=== PATIENT | male | born 1990 | race Caucasian/White ===

== ENCOUNTER 2017-06-13 00:41 | Inpatient (IN) | payer OTHER ==
[2017-06-13] MEDS: ONDANSETRON 4 MG INJ IV ×4 (01:20→14:27)
[2017-06-13] MEDS: morphine 4 MG/ML VIAL IV (01:21)
[2017-06-13] MEDS: NITROGLYCERIN 2% 1 GM OINT PKT TD (01:22)
[2017-06-13 01:50] LABS: ADD MAN DIFF? NO
[2017-06-13 01:53] LABS: ABNORMAL IP MESSAGE 1; BASOPHILS % 0.2 % (0.0-2.0); EOSINOPHILS # 0.1 10^3/ul (0.0-0.5); EOSINOPHILS % 0.8 % (0.0-7.0); HEMATOCRIT 22.4 % (42.0-52.0); LYMPHOCYTES # 1.2 10^3/ul (0.8-2.9); LYMPHOCYTES % 20.8 % (15.0-51.0); MEAN CORPUSCULAR HEMOGLOBIN 30.1 pg (29.0-33.0); MEAN CORPUSCULAR HGB CONC 35.7 g/dl (32.0-37.0); MEAN CORPUSCULAR VOLUME 84.2 fl (82.0-101.0); MONOCYTE # 0.3 10^3/ul (0.3-0.9); MONOCYTES % 5.2 % (0.0-11.0); NEUTROPHIL # 4.3 10^3/ul (1.6-7.5); NEUTROPHILS % 72.7 % (39.0-77.0); PLATELET COUNT 52 10^3/UL (140-415); POSITIVE DIFF @See below; RED BLOOD COUNT 2.66 10^6/ul (4.70-6.10); RED CELL DISTRIBUTION WIDTH 13.6 % (11.5-14.5)
[2017-06-13 02:13] LABS: ALANINE AMINOTRANSFERASE 17 IU/L (13-69); ALBUMIN 3.6 g/dl (3.3-4.9); ALBUMIN/GLOBULIN RATIO 1.44; ALKALINE PHOSPHATASE 71 IU/L (42-121); ANION GAP 17 (8-16); ASPARTATE AMINO TRANSFERASE 17 IU/L (15-46); BILIRUBIN,INDIRECT 0.3 mg/dl (0-1.1); BILIRUBIN,TOTAL 0.3 mg/dl (0.2-1.3); BLOOD UREA NITROGEN 46 mg/dl (7-20); CALCIUM 9.6 mg/dl (8.4-10.2); CARBON DIOXIDE 34 mmol/L (21-31); CHLORIDE 92 mmol/L (97-110); CREATININE 12.45 mg/dl (0.61-1.24); GLUCOSE 106 mg/dl (70-220); POTASSIUM 4.4 mmol/L (3.5-5.1); SODIUM 139 mmol/L (135-144); TOTAL PROTEIN 6.1 g/dl (6.1-8.1)
[2017-06-13 02:24] LABS: TROPONIN-I 0.029 ng/ml (0.00-0.12)
[2017-06-13 02:39] LABS: B-TYPE NATRIURETIC PEPTIDE 106000 PG/ML (0-125)
[2017-06-13] MEDS: hydrALAzine 20 MG INJ IV ×4 (02:55→17:51)
[2017-06-13] MEDS ORDERED: NITROGLYCERIN (SL) 0.4 MG TAB SL (04:30)
[2017-06-13] MEDS ORDERED: NACL 0.9% 3 ML SYG IV (04:30)
[2017-06-13] MEDS: ACETAMINOPHEN 325 MG TAB PO ×2 (04:49→11:16)
[2017-06-13 05:21] LABS: IRON 62 ug/dl (35-150)
[2017-06-13 05:30] LABS: % IRON SATURATION 31 % SAT (22-52); TOTAL IRON BINDING CAPACITY 201 ug/dl (241-421)
[2017-06-13 06:26] LABS: CREATINE KINASE 71 IU/L (23-200)
[2017-06-13 06:36] LABS: CK INDEX 0.8; TROPONIN-I 0.027 ng/ml (0.00-0.12)
[2017-06-13] MEDS: morphine 2 MG INJ IV ×2 (06:36→11:16)
[2017-06-13 06:37] LABS: CK-MB 0.58 ng/ml (0.0-2.4)
[2017-06-13] MEDS: BENAZEPRIL 20 MG TAB PO ×2 (08:50→09:00)
[2017-06-13] MEDS: LABETALOL 200 MG TAB PO ×2 (09:35→23:09)
[2017-06-13 14:39] LABS: CREATINE KINASE 62 IU/L (23-200)
[2017-06-13 14:54] LABS: CK INDEX 1.1; TROPONIN-I 0.052 ng/ml (0.00-0.12)
[2017-06-13] MEDS: EPOETIN 10000 UNITS/1 ML INJ (ESRD) SC (23:08)
[2017-06-14] MEDS: LABETALOL 200 MG TAB PO ×2 (08:33→20:19)
[2017-06-14] MEDS: BENAZEPRIL 20 MG TAB PO (08:34)
[2017-06-14 09:33] LABS: ADD MAN DIFF? NO
[2017-06-14 09:42] LABS: WHITE BLOOD COUNT 6.3 10^3/ul (4.8-10.8)
[2017-06-14 09:42] LABS: ABNORMAL IP MESSAGE 1; BASOPHILS % 0.2 % (0.0-2.0); EOSINOPHILS # 0.1 10^3/ul (0.0-0.5); HEMATOCRIT 23.5 % (42.0-52.0); LYMPHOCYTES # 1.5 10^3/ul (0.8-2.9); LYMPHOCYTES % 24.4 % (15.0-51.0); MEAN CORPUSCULAR HEMOGLOBIN 29.7 pg (29.0-33.0); MEAN CORPUSCULAR VOLUME 87.4 fl (82.0-101.0); MEAN PLATELET VOLUME 11.3 fl (7.4-10.4); MONOCYTE # 0.5 10^3/ul (0.3-0.9); MONOCYTES % 7.3 % (0.0-11.0); NEUTROPHIL # 4.2 10^3/ul (1.6-7.5); NEUTROPHILS % 66.8 % (39.0-77.0); PLATELET COUNT 92 10^3/UL (140-415); POSITIVE DIFF @See below; RED BLOOD COUNT 2.69 10^6/ul (4.70-6.10)
[2017-06-14 10:04] LABS: HEMOGLOBIN A1C 5.2 % (0-5.9)
[2017-06-14 10:07] LABS: ALANINE AMINOTRANSFERASE 22 IU/L (13-69); ALBUMIN 3.5 g/dl (3.3-4.9); ALBUMIN/GLOBULIN RATIO 1.52; ALKALINE PHOSPHATASE 65 IU/L (42-121); ANION GAP 15 (8-16); ASPARTATE AMINO TRANSFERASE 15 IU/L (15-46); BILIRUBIN,INDIRECT 0.2 mg/dl (0-1.1); BILIRUBIN,TOTAL 0.2 mg/dl (0.2-1.3); BLOOD UREA NITROGEN 24 mg/dl (7-20); CALCIUM 9.8 mg/dl (8.4-10.2); CARBON DIOXIDE 31 mmol/L (21-31); CHLORIDE 99 mmol/L (97-110); CHOL/HDL RATIO 4.5 RATIO; CHOLESTEROL 137 mg/dl (100-200); CREATININE 8.67 mg/dl (0.61-1.24); GLUCOSE 87 mg/dl (70-220); HDL CHOLESTEROL 30 mg/dl (30-63); LDL CHOLESTEROL,CALCULATED 82 mg/dl; POTASSIUM 5.2 mmol/L (3.5-5.1); SODIUM 140 mmol/L (135-144); TOTAL PROTEIN 5.8 g/dl (6.1-8.1); TRIGLYCERIDES 125 mg/dl (0-149)
[2017-06-14 23:45] LABS: HEPATITIS B SURFACE ANTIGEN NEGATIVE (NEGATIVE)
[2017-06-15] MEDS: hydrALAzine 20 MG INJ IV ×2 (01:17→23:59)
[2017-06-15] MEDS: DIPHENHYDRAMINE 50 MG INJ IV ×2 (03:04→23:59)
[2017-06-15] MEDS: BENAZEPRIL 20 MG TAB PO (08:19)
[2017-06-15] MEDS: LABETALOL 200 MG TAB PO ×2 (08:20→21:23)
[2017-06-15] MEDS: AMLODIPINE 5 MG TAB PO (08:21)
[2017-06-15 08:49] LABS: HEMOGLOBIN 8.6 g/dl (14.0-18.0)
[2017-06-15] MEDS: EPOETIN 10000 UNITS/1 ML INJ (ESRD) SC (18:59)
[2017-06-15] MEDS: ACETAMINOPHEN 325 MG TAB PO (23:59)
[2017-06-16] MEDS: BENAZEPRIL 20 MG TAB PO (08:41)
[2017-06-16] MEDS: AMLODIPINE 5 MG TAB PO (08:41)
[2017-06-16] MEDS: LABETALOL 200 MG TAB PO (08:42)
[2017-06-16] MEDS: hydrALAzine 20 MG INJ IV ×2 (11:12→17:03)
== END 2017-06-16 17:34 | disposition home or self-care (01) | DRG 304 ==
LOC: MS4 05:35 → E/R 00:41 → TEL 06-14 22:47 → MS4 03:35
PROC: 5A1D70Z Performance of Urinary Filtration, Intermittent, Less than 6 Hours Per Day (ICD-10-PCS; principal; 2017-06-15)
DX: I16.0 Hypertensive urgency (principal); I12.0 Hypertensive chronic kidney disease with stage 5 chronic kidney disease or end stage renal disease; N18.6 End stage renal disease; I67.83 Posterior reversible encephalopathy syndrome; Q60.0 Renal agenesis, unilateral; G47.33 Obstructive sleep apnea (adult) (pediatric); D63.1 Anemia in chronic kidney disease; K21.9 Gastro-esophageal reflux disease without esophagitis; E83.9 Disorder of mineral metabolism, unspecified; Z99.2 Dependence on renal dialysis
CPT/HCPCS: 36415; 71045; 76775; 80053; 80061; 82550; 82553; 82728; 83036; 83540; 83735; 83880; 84443; 84484; 85014; 85018; 85025; 87340; 90935; 93005; 93306; 96374; 96375; 96376; 99291-25

== ENCOUNTER 2017-06-17 19:23 | Inpatient (IN) | payer OTHER ==
[2017-06-17] MEDS ORDERED: NITROGLYCERIN (SL) 0.4 MG TAB SL (20:00)
[2017-06-17] MEDS: ASPIRIN 81 MG TAB PO (20:10)
[2017-06-17] MEDS: NITROGLYCERIN 2% 1 GM OINT PKT TD (20:12)
[2017-06-17] MEDS: ONDANSETRON 4 MG INJ IV (20:13)
[2017-06-17] MEDS: morphine 4 MG/ML VIAL IV (20:14)
[2017-06-17 20:16] LABS: ADD MAN DIFF? NO
[2017-06-17 20:37] LABS: ANION GAP 19 (8-16); BASOPHILS % 0.4 % (0.0-2.0); BLOOD UREA NITROGEN 26 mg/dl (7-20); CALCIUM 9.1 mg/dl (8.4-10.2); CARBON DIOXIDE 32 mmol/L (21-31); CHLORIDE 89 mmol/L (97-110); CREATININE 6.22 mg/dl (0.61-1.24); EOSINOPHILS % 0.4 % (0.0-7.0); GLUCOSE 97 mg/dl (70-220); HEMATOCRIT 22.5 % (42.0-52.0); HEMOGLOBIN 8.1 g/dl (14.0-18.0); LYMPHOCYTES % 39.3 % (15.0-51.0); MEAN CORPUSCULAR VOLUME 83.3 fl (82.0-101.0); MEAN PLATELET VOLUME 11.1 fl (7.4-10.4); MONOCYTE # 0.4 10^3/ul (0.3-0.9); MONOCYTES % 7.9 % (0.0-11.0); NEUTROPHIL # 2.6 10^3/ul (1.6-7.5); NEUTROPHILS % 51.8 % (39.0-77.0); PLATELET COUNT 137 10^3/UL (140-415); POTASSIUM 3.4 mmol/L (3.5-5.1); RED CELL DISTRIBUTION WIDTH 14.3 % (11.5-14.5); SODIUM 137 mmol/L (135-144)
[2017-06-17 20:50] LABS: TROPONIN-I < 0.012 ng/ml (0.00-0.12)
[2017-06-17] MEDS ORDERED: ACETAMINOPHEN 325 MG TAB PO (21:30)
[2017-06-17] MEDS ORDERED: ONDANSETRON 4 MG INJ IV (21:30)
[2017-06-17] MEDS ORDERED: BISACODYL (EC) 5 MG TAB PO (23:30)
[2017-06-17] MEDS ORDERED: NACL 0.9% 3 ML SYG IV (23:30)
[2017-06-17] MEDS ORDERED: DOCUSATE SODIUM 100 MG CAP PO (23:30)
[2017-06-18] MEDS: LABETALOL HCL 20MG INJ IV (01:56)
[2017-06-18 02:32] LABS: ADD MAN DIFF? NO
[2017-06-18 02:36] LABS: WHITE BLOOD COUNT 5.6 10^3/ul (4.8-10.8)
[2017-06-18 02:36] LABS: BASOPHILS % 0.4 % (0.0-2.0); EOSINOPHILS % 0.2 % (0.0-7.0); HEMATOCRIT 23.5 % (42.0-52.0); HEMOGLOBIN 8.1 g/dl (14.0-18.0); LYMPHOCYTES # 1.5 10^3/ul (0.8-2.9); LYMPHOCYTES % 26.2 % (15.0-51.0); MEAN CORPUSCULAR HEMOGLOBIN 29.8 pg (29.0-33.0); MEAN CORPUSCULAR HGB CONC 34.5 g/dl (32.0-37.0); MEAN CORPUSCULAR VOLUME 86.4 fl (82.0-101.0); MEAN PLATELET VOLUME 10.9 fl (7.4-10.4); MONOCYTE # 0.3 10^3/ul (0.3-0.9); MONOCYTES % 4.8 % (0.0-11.0); NEUTROPHIL # 3.8 10^3/ul (1.6-7.5); PLATELET COUNT 119 10^3/UL (140-415); RED BLOOD COUNT 2.72 10^6/ul (4.70-6.10); RED CELL DISTRIBUTION WIDTH 14.2 % (11.5-14.5)
[2017-06-18 03:10] LABS: CREATINE KINASE 61 IU/L (23-200)
[2017-06-18 03:11] LABS: ALANINE AMINOTRANSFERASE 15 IU/L (13-69); ALBUMIN 3.8 g/dl (3.3-4.9); ALKALINE PHOSPHATASE 71 IU/L (42-121); ANION GAP 17 (8-16); ASPARTATE AMINO TRANSFERASE 15 IU/L (15-46); BILIRUBIN,INDIRECT 0.2 mg/dl (0-1.1); BILIRUBIN,TOTAL 0.2 mg/dl (0.2-1.3); BLOOD UREA NITROGEN 32 mg/dl (7-20); CARBON DIOXIDE 37 mmol/L (21-31); CHLORIDE 87 mmol/L (97-110); CREATININE 7.56 mg/dl (0.61-1.24); GLUCOSE 137 mg/dl (70-220); SODIUM 137 mmol/L (135-144); TOTAL PROTEIN 6.5 g/dl (6.1-8.1)
[2017-06-18 03:20] LABS: CK INDEX 0.4; TROPONIN-I 0.109 ng/ml (0.00-0.12)
[2017-06-18 03:24] LABS: CK-MB 0.27 ng/ml (0.0-2.4)
[2017-06-18] MEDS ORDERED: DIAZEPAM 5 MG/ML SYG IV (05:30)
[2017-06-18] MEDS: DIAZEPAM 5 MG/ML SYG IV (06:37)
[2017-06-18 08:21] LABS: CREATINE KINASE 59 IU/L (23-200)
[2017-06-18 08:34] LABS: CK INDEX 0.4
[2017-06-18 08:38] LABS: CK-MB < 0.22 ng/ml (0.0-2.4)
[2017-06-18 08:41] LABS: TROPONIN-I 0.156 ng/ml (0.00-0.12)
[2017-06-18] MEDS: ASPIRIN 81 MG TAB PO (09:58)
[2017-06-18 12:04] LABS: TROPONIN-I 0.128 ng/ml (0.00-0.12)
[2017-06-18] MEDS: ISOSORBIDE DINITRATE 20 MG TAB PO ×2 (16:13→21:09)
[2017-06-18 18:18] LABS: CREATINE KINASE 61 IU/L (23-200)
[2017-06-18 18:32] LABS: CK INDEX 0.4; TROPONIN-I 0.085 ng/ml (0.00-0.12)
[2017-06-18 18:37] LABS: CK-MB < 0.22 ng/ml (0.0-2.4)
[2017-06-18] MEDS: ACETAMINOPHEN 325 MG TAB PO (21:09)
[2017-06-18] MEDS: ONDANSETRON 4 MG INJ IV (21:10)
[2017-06-18] MEDS: DIPHENHYDRAMINE 25 MG CAP PO (23:36)
[2017-06-19] MEDS: hydrALAzine 20 MG INJ IV ×4 (00:44→11:38)
[2017-06-19 01:14] LABS: CREATINE KINASE 64 IU/L (23-200)
[2017-06-19 01:26] LABS: CK INDEX 0.3
[2017-06-19 01:28] LABS: CK-MB < 0.22 ng/ml (0.0-2.4)
[2017-06-19] MEDS: ONDANSETRON 4 MG INJ IV (07:40)
[2017-06-19] MEDS: morphine 2 MG INJ IV ×2 (07:41→23:43)
[2017-06-19 07:55] LABS: CHOLESTEROL 126 mg/dl (100-200)
[2017-06-19 07:55] LABS: CHOL/HDL RATIO 4.5 RATIO; HDL CHOLESTEROL 28 mg/dl (30-63); LDL CHOLESTEROL,CALCULATED 74 mg/dl; TRIGLYCERIDES 121 mg/dl (0-149)
[2017-06-19] MEDS: ISOSORBIDE DINITRATE 20 MG TAB PO ×2 (09:05→12:48)
[2017-06-19] MEDS: ASPIRIN 81 MG TAB PO (09:05)
[2017-06-19] MEDS: LABETALOL 200 MG TAB PO ×2 (09:06→20:49)
[2017-06-19] MEDS: SEVELAMER CARBONATE 0.8 GM PKT PO ×3 (09:06→17:29)
[2017-06-19] MEDS: LOSARTAN 50 MG TAB PO ×2 (09:06→20:50)
[2017-06-19] MEDS: REGADENOSON 0.4 MG/5 ML SYG (11:25)
[2017-06-20] MEDS: NITROGLYCERIN (SL) 0.4 MG TAB SL (01:53)
[2017-06-20] MEDS: LABETALOL HCL 20MG INJ IV (01:55)
[2017-06-20] MEDS: AMLODIPINE 5 MG TAB PO (05:38)
[2017-06-20] MEDS: LABETALOL 200 MG TAB PO ×2 (08:04→21:00)
[2017-06-20] MEDS: SEVELAMER CARBONATE 0.8 GM PKT PO ×3 (08:04→18:05)
[2017-06-20] MEDS: ASPIRIN 81 MG TAB PO (08:04)
[2017-06-20] MEDS: LOSARTAN 50 MG TAB PO (08:05)
[2017-06-20 09:11] LABS: ADD MAN DIFF? NO
[2017-06-20 09:21] LABS: WHITE BLOOD COUNT 4.2 10^3/ul (4.8-10.8)
[2017-06-20 09:21] LABS: BASOPHILS % 0.2 % (0.0-2.0); EOSINOPHILS # 0.1 10^3/ul (0.0-0.5); EOSINOPHILS % 1.9 % (0.0-7.0); HEMATOCRIT 22.4 % (42.0-52.0); HEMOGLOBIN 7.5 g/dl (14.0-18.0); LYMPHOCYTES # 1.5 10^3/ul (0.8-2.9); LYMPHOCYTES % 34.5 % (15.0-51.0); MEAN CORPUSCULAR HEMOGLOBIN 29.9 pg (29.0-33.0); MEAN CORPUSCULAR HGB CONC 33.5 g/dl (32.0-37.0); MEAN CORPUSCULAR VOLUME 89.2 fl (82.0-101.0); MONOCYTE # 0.3 10^3/ul (0.3-0.9); MONOCYTES % 7.1 % (0.0-11.0); NEUTROPHIL # 2.3 10^3/ul (1.6-7.5); NEUTROPHILS % 55.8 % (39.0-77.0); PLATELET COUNT 119 10^3/UL (140-415); RED BLOOD COUNT 2.51 10^6/ul (4.70-6.10)
[2017-06-20 09:47] LABS: ANION GAP 13 (8-16); BLOOD UREA NITROGEN 39 mg/dl (7-20); CALCIUM 9.2 mg/dl (8.4-10.2); CARBON DIOXIDE 38 mmol/L (21-31); CHLORIDE 92 mmol/L (97-110); CREATININE 10.84 mg/dl (0.61-1.24); GLUCOSE 98 mg/dl (70-220); MAGNESIUM 2.1 mg/dl (1.7-2.5); PHOSPHORUS 5.1 mg/dl (2.5-4.9); POTASSIUM 5.1 mmol/L (3.5-5.1); SODIUM 138 mmol/L (135-144)
[2017-06-20] MEDS: NIFEdipine (XL) 60 MG TAB PO ×2 (09:49→20:57)
[2017-06-20] MEDS: BENAZEPRIL 40 MG TAB PO ×2 (09:50→20:57)
[2017-06-20] MEDS: hydrALAzine 20 MG INJ IV (12:07)
[2017-06-20] MEDS: LORAZEPAM 0.5 MG TAB PO (15:17)
[2017-06-20 16:07] LABS: IRON 38 ug/dl (35-150)
[2017-06-20 16:16] LABS: % IRON SATURATION 36 % SAT (22-52); TOTAL IRON BINDING CAPACITY 107 ug/dl (241-421)
[2017-06-20] MEDS ORDERED: LORAZEPAM 0.5 MG TAB PO (17:00)
[2017-06-20] MEDS: SEVELAMER 800 MG TAB PO (18:30)
[2017-06-20] MEDS: BUSPIRONE 5 MG TAB PO (20:56)
[2017-06-20] MEDS: EPOETIN 10000 UNITS/1 ML INJ (ESRD) SC (20:56)
[2017-06-21] MEDS: DIPHENHYDRAMINE 25 MG CAP PO (00:46)
[2017-06-21 09:25] LABS: ADD MAN DIFF? NO
[2017-06-21 09:36] LABS: BASOPHILS % 0.5 % (0.0-2.0); EOSINOPHILS # 0.1 10^3/ul (0.0-0.5); EOSINOPHILS % 1.5 % (0.0-7.0); HEMATOCRIT 24.7 % (42.0-52.0); HEMOGLOBIN 8.3 g/dl (14.0-18.0); LYMPHOCYTES # 1.1 10^3/ul (0.8-2.9); LYMPHOCYTES % 27.3 % (15.0-51.0); MEAN CORPUSCULAR HGB CONC 33.6 g/dl (32.0-37.0); MEAN CORPUSCULAR VOLUME 89.2 fl (82.0-101.0); MEAN PLATELET VOLUME 10.6 fl (7.4-10.4); MONOCYTE # 0.3 10^3/ul (0.3-0.9); MONOCYTES % 6.9 % (0.0-11.0); NEUTROPHIL # 2.6 10^3/ul (1.6-7.5); NEUTROPHILS % 63.3 % (39.0-77.0); PLATELET COUNT 145 10^3/UL (140-415); RED BLOOD COUNT 2.77 10^6/ul (4.70-6.10); RED CELL DISTRIBUTION WIDTH 14.6 % (11.5-14.5)
[2017-06-21] MEDS: BUSPIRONE 5 MG TAB PO ×2 (09:49→20:07)
[2017-06-21] MEDS: ASPIRIN 81 MG TAB PO (09:49)
[2017-06-21] MEDS: SEVELAMER 800 MG TAB PO ×3 (09:49→18:49)
[2017-06-21] MEDS: NIFEdipine (XL) 60 MG TAB PO ×2 (09:51→20:07)
[2017-06-21] MEDS: BENAZEPRIL 40 MG TAB PO ×2 (09:51→20:06)
[2017-06-21] MEDS: LABETALOL 200 MG TAB PO ×2 (09:52→20:06)
[2017-06-21 11:52] LABS: ANION GAP 17 (8-16); BLOOD UREA NITROGEN 31 mg/dl (7-20); CALCIUM 9.3 mg/dl (8.4-10.2); CARBON DIOXIDE 32 mmol/L (21-31); CHLORIDE 95 mmol/L (97-110); CREATININE 8.71 mg/dl (0.61-1.24); GLUCOSE 90 mg/dl (70-220); POTASSIUM 5.2 mmol/L (3.5-5.1); SODIUM 139 mmol/L (135-144)
[2017-06-21] MEDS: EPOETIN 10000 UNITS/1 ML INJ (ESRD) SC (18:50)
[2017-06-22] MEDS: SEVELAMER 800 MG TAB PO (08:27)
[2017-06-22] MEDS: ASPIRIN 81 MG TAB PO (08:52)
[2017-06-22] MEDS: BUSPIRONE 5 MG TAB PO (08:52)
[2017-06-22] MEDS: BENAZEPRIL 40 MG TAB PO (08:53)
[2017-06-22] MEDS: LABETALOL 200 MG TAB PO (08:53)
[2017-06-22] MEDS: NIFEdipine (XL) 60 MG TAB PO (08:53)
== END 2017-06-22 10:10 | disposition left against medical advice (07) | DRG 313 ==
LOC: E/R 19:23 → MS4 21:14
PROC: 5A1D70Z Performance of Urinary Filtration, Intermittent, Less than 6 Hours Per Day (ICD-10-PCS; principal; 2017-06-20)
DX: R07.89 Other chest pain (principal); N18.6 End stage renal disease; Q60.0 Renal agenesis, unilateral; F33.9 Major depressive disorder, recurrent, unspecified; I12.0 Hypertensive chronic kidney disease with stage 5 chronic kidney disease or end stage renal disease; F41.9 Anxiety disorder, unspecified; Z99.2 Dependence on renal dialysis; K21.9 Gastro-esophageal reflux disease without esophagitis; D63.1 Anemia in chronic kidney disease; I16.0 Hypertensive urgency; F41.0 Panic disorder [episodic paroxysmal anxiety]
CPT/HCPCS: 36415; 71045; 78452; 80048; 80053; 80061; 82550; 82553; 82728; 83540; 83735; 84100; 84484; 85025; 90935; 93005; 93017; 96374; 96375; 99285-25; G0378

== ENCOUNTER 2017-07-24 15:40 | Emergency (ER) | payer MEDICAID ==
[2017-07-24 16:17] LABS: ADD MAN DIFF? NO
[2017-07-24 16:20] LABS: BASOPHILS % 0.3 % (0.0-2.0); EOSINOPHILS % 0.5 % (0.0-7.0); HEMATOCRIT 27.4 % (42.0-52.0); HEMOGLOBIN 9.9 g/dl (14.0-18.0); LYMPHOCYTES # 1.2 10^3/ul (0.8-2.9); LYMPHOCYTES % 19.3 % (15.0-51.0); MEAN CORPUSCULAR HEMOGLOBIN 30.4 pg (29.0-33.0); MEAN CORPUSCULAR HGB CONC 36.1 g/dl (32.0-37.0); MEAN PLATELET VOLUME 9.8 fl (7.4-10.4); MONOCYTE # 0.3 10^3/ul (0.3-0.9); MONOCYTES % 4.8 % (0.0-11.0); NEUTROPHIL # 4.5 10^3/ul (1.6-7.5); NEUTROPHILS % 74.8 % (39.0-77.0); PLATELET COUNT 189 10^3/UL (140-415); RED BLOOD COUNT 3.26 10^6/ul (4.70-6.10)
[2017-07-24] MEDS: ASPIRIN 81 MG TAB PO (16:25)
[2017-07-24] MEDS: morphine 4 MG/ML VIAL IV (16:25)
[2017-07-24] MEDS: ONDANSETRON 4 MG INJ IV (16:25)
[2017-07-24 16:44] LABS: ALANINE AMINOTRANSFERASE 15 IU/L (13-69); ALBUMIN 4.8 g/dl (3.3-4.9); ALBUMIN/GLOBULIN RATIO 1.45; ALKALINE PHOSPHATASE 108 IU/L (42-121); ANION GAP 22 (8-16); ASPARTATE AMINO TRANSFERASE 18 IU/L (15-46); BILIRUBIN,INDIRECT 0.3 mg/dl (0-1.1); BILIRUBIN,TOTAL 0.3 mg/dl (0.2-1.3); BLOOD UREA NITROGEN 25 mg/dl (7-20); CALCIUM 9.9 mg/dl (8.4-10.2); CARBON DIOXIDE 34 mmol/L (21-31); CHLORIDE 88 mmol/L (97-110); CREATINE KINASE 48 IU/L (23-200); CREATININE 7.57 mg/dl (0.61-1.24); GLUCOSE 130 mg/dl (70-220); POTASSIUM 3.6 mmol/L (3.5-5.1); SODIUM 140 mmol/L (135-144); TOTAL PROTEIN 8.1 g/dl (6.1-8.1)
[2017-07-24 16:47] LABS: ETHANOL < 10.0 mg/dl
[2017-07-24 16:50] LABS: INR 0.96; PROTIME 12.9 Sec (11.9-14.9)
[2017-07-24 16:51] LABS: PARTIAL THROMBOPLASTIN TIME 30.9 Sec (25.0-35.0)
[2017-07-24 16:54] LABS: B-TYPE NATRIURETIC PEPTIDE 32800 PG/ML (0-125); CK INDEX 0.5
[2017-07-24 16:57] LABS: CK-MB < 0.22 ng/ml (0.0-2.4); TROPONIN-I < 0.012 ng/ml (0.000-0.120)
[2017-07-24 17:37] LABS: HEMOGLOBIN A1C 4.4 % (0-5.9)
[2017-07-24] MEDS: NICARDipine HCL 30 MG CAPSULE PO (18:45)
[2017-07-24 19:38] LABS: TROPONIN-I < 0.012 ng/ml (0.000-0.120)
== END 2017-07-24 20:09 ==
LOC: E/R 15:40
DX: I12.0 Hypertensive chronic kidney disease with stage 5 chronic kidney disease or end stage renal disease (principal); N18.6 End stage renal disease; Z99.2 Dependence on renal dialysis
CPT/HCPCS: 71045; 80053; 80307; 82550; 82553; 83036; 83880; 84484; 85025; 85610; 85730; 93005; 96374; 96375; 99285-25

== ENCOUNTER 2017-07-31 21:40 | Emergency (ER) | payer MEDICAID ==
[2017-08-01] MEDS: ONDANSETRON 4 MG INJ IV (00:12)
[2017-08-01] MEDS: morphine 4 MG/ML VIAL IV ×2 (00:12→04:23)
[2017-08-01 00:50] LABS: ADD MAN DIFF? NO
[2017-08-01 00:53] LABS: WHITE BLOOD COUNT 7.8 10^3/ul (4.8-10.8)
[2017-08-01 00:53] LABS: BASOPHILS % 0.4 % (0.0-2.0); EOSINOPHILS % 0.3 % (0.0-7.0); HEMOGLOBIN 10.9 g/dl (14.0-18.0); LYMPHOCYTES # 2.1 10^3/ul (0.8-2.9); LYMPHOCYTES % 26.3 % (15.0-51.0); MEAN CORPUSCULAR HGB CONC 35.2 g/dl (32.0-37.0); MEAN CORPUSCULAR VOLUME 88.1 fl (82.0-101.0); MEAN PLATELET VOLUME 10.8 fl (7.4-10.4); MONOCYTE # 0.5 10^3/ul (0.3-0.9); MONOCYTES % 6.1 % (0.0-11.0); NEUTROPHIL # 5.2 10^3/ul (1.6-7.5); NEUTROPHILS % 66.5 % (39.0-77.0); PLATELET COUNT 200 10^3/UL (140-415); RED BLOOD COUNT 3.52 10^6/ul (4.70-6.10); RED CELL DISTRIBUTION WIDTH 15.9 % (11.5-14.5)
[2017-08-01 01:04] LABS: ADD UMIC YES; UR ASCORBIC ACID NEGATIVE (NEGATIVE); UR BACTERIA FEW /HPF (NONE SEEN); UR BILIRUBIN (Dip) NEGATIVE (NEGATIVE); UR BLOOD (Dip) 1+ mg/dL (NEGATIVE); UR BUDDING YEAST FEW /HPF (NONE SEEN); UR CLARITY TURBID (CLEAR); UR COLOR YELLOW (YELLOW); UR GLUCOSE (Dip) 3+ mg/dL (NEGATIVE); UR KETONES (Dip) NEGATIVE (NEGATIVE); UR LEUKOCYTE ESTERASE (Dip) NEGATIVE Leu/ul (NEGATIVE); UR MUCUS FEW /HPF (NONE SEEN); UR NITRITE (Dip) NEGATIVE (NEGATIVE); UR RBC > 182 /HPF (0-5); UR SPECIFIC GRAVITY (Dip) 1.018 (1.003-1.030); UR TOTAL PROTEIN (Dip) 3+ mg/dl (NEGATIVE); UR UROBILINOGEN (Dip) NEGATIVE (NEGATIVE); UR WBC 43 /HPF (0-5)
[2017-08-01 01:15] LABS: ALANINE AMINOTRANSFERASE 14 IU/L (13-69); ALBUMIN 4.7 g/dl (3.3-4.9); ALBUMIN/GLOBULIN RATIO 1.46; ALKALINE PHOSPHATASE 137 IU/L (42-121); ANION GAP 19 (8-16); ASPARTATE AMINO TRANSFERASE 17 IU/L (15-46); BILIRUBIN,INDIRECT 0.1 mg/dl (0-1.1); BILIRUBIN,TOTAL 0.1 mg/dl (0.2-1.3); BLOOD UREA NITROGEN 27 mg/dl (7-20); CALCIUM 10.2 mg/dl (8.4-10.2); CARBON DIOXIDE 37 mmol/L (21-31); CHLORIDE 90 mmol/L (97-110); GLUCOSE 91 mg/dl (70-220); LIPASE 195 U/L (23-300); POTASSIUM 3.7 mmol/L (3.5-5.1); SODIUM 142 mmol/L (135-144); TOTAL PROTEIN 7.9 g/dl (6.1-8.1)
[2017-08-01 01:24] LABS: INR 0.89; PROTIME 12.1 Sec (11.9-14.9); PT RATIO 0.9
[2017-08-01 01:25] LABS: PARTIAL THROMBOPLASTIN TIME 32.6 Sec (25.0-35.0)
== END 2017-08-01 05:12 | disposition home or self-care (01) ==
LOC: FTE 08-01 05:12
DX: R10.31 Right lower quadrant pain (principal); I10 Essential (primary) hypertension
CPT/HCPCS: 36415; 74181; 80053; 81001; 83690; 85025; 85610; 85730; 96374; 96375; 96376; 99284-25

== ENCOUNTER 2017-08-14 14:21 | Inpatient (IN) | payer MEDICAID ==
[2017-08-14] MEDS: ASPIRIN 81 MG TAB PO (14:54)
[2017-08-14 14:56] LABS: ADD MAN DIFF? NO
[2017-08-14] MEDS: NITROGLYCERIN 50 MG/D5W (PMX) 250 ML IV ×2 (14:56→22:27)
[2017-08-14 14:58] LABS: BASOPHILS % 0.5 % (0.0-2.0); EOSINOPHILS # 0.1 10^3/ul (0.0-0.5); EOSINOPHILS % 1.6 % (0.0-7.0); HEMATOCRIT 25.4 % (42.0-52.0); HEMOGLOBIN 8.9 g/dl (14.0-18.0); LYMPHOCYTES # 1.1 10^3/ul (0.8-2.9); LYMPHOCYTES % 27.8 % (15.0-51.0); MEAN CORPUSCULAR HEMOGLOBIN 30.1 pg (29.0-33.0); MEAN CORPUSCULAR VOLUME 85.8 fl (82.0-101.0); MONOCYTE # 0.3 10^3/ul (0.3-0.9); MONOCYTES % 7.4 % (0.0-11.0); NEUTROPHIL # 2.4 10^3/ul (1.6-7.5); NEUTROPHILS % 62.4 % (39.0-77.0); PLATELET COUNT 145 10^3/UL (140-415); RED BLOOD COUNT 2.96 10^6/ul (4.70-6.10); RED CELL DISTRIBUTION WIDTH 13.8 % (11.5-14.5)
[2017-08-14 14:58] LABS: WHITE BLOOD COUNT 3.8 10^3/ul (4.8-10.8)
[2017-08-14 15:17] LABS: ANION GAP 14 (8-16); BLOOD UREA NITROGEN 34 mg/dl (7-20); CALCIUM 9.3 mg/dl (8.4-10.2); CARBON DIOXIDE 33 mmol/L (21-31); CHLORIDE 91 mmol/L (97-110); CREATINE KINASE 48 IU/L (23-200); CREATININE 9.38 mg/dl (0.61-1.24); GLUCOSE 70 mg/dl (70-220); MAGNESIUM 1.9 mg/dl (1.7-2.5); PHOSPHORUS 3.7 mg/dl (2.5-4.9); POTASSIUM 4.2 mmol/L (3.5-5.1); SODIUM 134 mmol/L (135-144)
[2017-08-14 15:28] LABS: CK INDEX 0.7
[2017-08-14 15:29] LABS: CK-MB 0.32 ng/ml (0.0-2.4); TROPONIN-I < 0.012 ng/ml (0.000-0.120)
[2017-08-14 15:46] LABS: INR 1.02; PROTIME 13.5 Sec (11.9-14.9); PT RATIO 1.1
[2017-08-14 15:47] LABS: PARTIAL THROMBOPLASTIN TIME 38.8 Sec (25.0-35.0)
[2017-08-14] MEDS: ONDANSETRON 4 MG INJ IV ×2 (15:58→20:20)
[2017-08-14] MEDS: morphine 4 MG/ML VIAL IV (15:58)
[2017-08-14] MEDS: SEVELAMER CARBONATE 0.8 GM PKT PO (18:00)
[2017-08-14] MEDS ORDERED: NA PHOSPHATE/BIPHOS 133 ML ENEMA PR (18:00)
[2017-08-14] MEDS ORDERED: ALBUTEROL/IPRATROPIUM (NEB) 3 ML AMP HHN (18:00)
[2017-08-14] MEDS ORDERED: NACL 0.9% 3 ML SYG IV (18:00)
[2017-08-14] MEDS ORDERED: NITROGLYCERIN (SL) 0.4 MG TAB SL (18:00)
[2017-08-14] MEDS ORDERED: LORAZEPAM 2 MG INJ IV (18:00)
[2017-08-14 18:15] LABS: HEMOGLOBIN A1C 4.4 % (0-5.9)
[2017-08-14 18:29] LABS: FREE T4 (FREE THYROXINE) 1.51 ng/dl (0.79-2.35)
[2017-08-14] MEDS ORDERED: NITROGLYCERIN 50 MG/D5W (PMX) 250 ML IV (18:30)
[2017-08-14] MEDS: MINOXIDIL 2.5 MG TAB PO (19:42)
[2017-08-14] MEDS: LISINOPRIL 20 MG TAB PO (19:42)
[2017-08-14] MEDS: morphine 2 MG INJ IV (20:20)
[2017-08-14] MEDS: MAGNESIUM HYDROXIDE 30ML CUP PO (20:33)
[2017-08-14] MEDS: NIFEdipine (XL) 30 MG TAB PO (20:35)
[2017-08-14] MEDS: LABETALOL 100 MG TAB PO (20:38)
[2017-08-14] MEDS ORDERED: HEPARIN 5,000 UNIT/0.5 ML VIAL SC (21:00)
[2017-08-14] MEDS: HYDROCODONE/APAP (5/325) TAB PO (21:09)
[2017-08-14] MEDS: SENNA TAB PO (22:22)
[2017-08-14] MEDS: HYDROmorphONE 1 MG/ML SYG IV (22:24)
[2017-08-15] MEDS: HYDROCODONE/APAP (10/325) TAB PO ×2 (00:12→23:40)
[2017-08-15] MEDS: NITROGLYCERIN 50 MG/D5W (PMX) 250 ML IV ×4 (01:28→09:06)
[2017-08-15] MEDS: hydrALAzine 20 MG INJ IV (02:08)
[2017-08-15] MEDS: morphine 2 MG INJ IV (02:08)
[2017-08-15 03:20] LABS: ADD MAN DIFF? NO
[2017-08-15 03:21] LABS: WHITE BLOOD COUNT 5.6 10^3/ul (4.8-10.8)
[2017-08-15 03:21] LABS: BASOPHILS % 0.4 % (0.0-2.0); EOSINOPHILS % 0.5 % (0.0-7.0); HEMOGLOBIN 8.3 g/dl (14.0-18.0); LYMPHOCYTES # 0.9 10^3/ul (0.8-2.9); LYMPHOCYTES % 16.4 % (15.0-51.0); MEAN CORPUSCULAR HEMOGLOBIN 30.1 pg (29.0-33.0); MEAN CORPUSCULAR HGB CONC 34.6 g/dl (32.0-37.0); MEAN PLATELET VOLUME 8.9 fl (7.4-10.4); MONOCYTE # 0.4 10^3/ul (0.3-0.9); MONOCYTES % 7.3 % (0.0-11.0); NEUTROPHIL # 4.2 10^3/ul (1.6-7.5); NEUTROPHILS % 75.2 % (39.0-77.0); PLATELET COUNT 129 10^3/UL (140-415); RED BLOOD COUNT 2.76 10^6/ul (4.70-6.10); RED CELL DISTRIBUTION WIDTH 13.6 % (11.5-14.5)
[2017-08-15 03:33] LABS: HEMOGLOBIN A1C 4.2 % (0-5.9)
[2017-08-15 03:45] LABS: ANION GAP 13 (8-16); BLOOD UREA NITROGEN 40 mg/dl (7-20); CALCIUM 9.1 mg/dl (8.4-10.2); CARBON DIOXIDE 36 mmol/L (21-31); CHLORIDE 87 mmol/L (97-110); CREATININE 11.62 mg/dl (0.61-1.24); GLUCOSE 113 mg/dl (70-220); PHOSPHORUS 6.7 mg/dl (2.5-4.9); POTASSIUM 4.2 mmol/L (3.5-5.1); SODIUM 132 mmol/L (135-144)
[2017-08-15 03:46] LABS: CHOLESTEROL 131 mg/dl (100-200)
[2017-08-15 03:46] LABS: CREATINE KINASE 45 IU/L (23-200); HDL CHOLESTEROL 26 mg/dl (30-63); LDL CHOLESTEROL,CALCULATED 78 mg/dl; TRIGLYCERIDES 137 mg/dl (0-149)
[2017-08-15 03:57] LABS: CK INDEX 0.5
[2017-08-15 03:59] LABS: CK-MB < 0.22 ng/ml (0.0-2.4); TROPONIN-I < 0.012 ng/ml (0.000-0.120)
[2017-08-15] MEDS: PANTOPRAZOLE (EC) 40 MG TAB PO (05:51)
[2017-08-15] MEDS: IOHEXOL 14.3 MG(I)/ML (ADULT) BTL PO (07:30)
[2017-08-15] MEDS: LABETALOL 100 MG TAB PO ×2 (08:59→20:32)
[2017-08-15] MEDS: LISINOPRIL 20 MG TAB PO (09:00)
[2017-08-15] MEDS: NIFEdipine (XL) 60 MG TAB PO (09:00)
[2017-08-15] MEDS: SENNA TAB PO ×2 (09:01→20:32)
[2017-08-15] MEDS: PRAZOSIN 1 MG CAP PO ×3 (09:02→20:31)
[2017-08-15] MEDS: MINOXIDIL 10 MG TAB PO ×2 (09:02→20:31)
[2017-08-15] MEDS: ONDANSETRON 4 MG INJ IV ×2 (09:03→09:41)
[2017-08-15] MEDS: SEVELAMER CARBONATE 0.8 GM PKT PO ×3 (09:03→17:38)
[2017-08-15] MEDS ORDERED: LIDOCAINE 1% (MDV) 10 ML INJ (09:55)
[2017-08-15 10:04] LABS: HEPATITIS B SURFACE ANTIGEN NEGATIVE (NEGATIVE)
[2017-08-15] MEDS ORDERED: ONDANSETRON 4 MG INJ IV (12:00)
[2017-08-15 12:51] LABS: HAAIG REFLEX REFLEX FILED
[2017-08-15 13:11] LABS: HEPATITIS B SURFACE ANTIBODY POSITIVE (NEGATIVE)
[2017-08-15 13:29] LABS: TROPONIN-I < 0.012 ng/ml (0.000-0.120)
[2017-08-15 13:45] LABS: LIPASE 31 U/L (23-300)
[2017-08-15 13:47] LABS: HEPATITIS B SURFACE ANTIGEN NEGATIVE (NEGATIVE)
[2017-08-15] MEDS: LIDOCAINE 1% (MDV) 10 ML INJ INJ (13:50)
[2017-08-15 14:05] LABS: HEPATITIS B CORE ANTIBODY NEGATIVE (NEGATIVE); HEPATITIS C VIRAL ANTIBODY NEGATIVE (NEGATIVE)
[2017-08-15] MEDS: EPOETIN 10000 UNITS/1 ML INJ (ESRD) SC (17:37)
[2017-08-15] MEDS ORDERED: LABETALOL HCL 20MG INJ IV ×2 (18:30)
[2017-08-15] MEDS: NIFEdipine (XL) 30 MG TAB PO (20:32)
[2017-08-16 05:13] LABS: ADD MAN DIFF? NO
[2017-08-16 05:19] LABS: BASOPHILS % 0.3 % (0.0-2.0); EOSINOPHILS # 0.1 10^3/ul (0.0-0.5); EOSINOPHILS % 2.8 % (0.0-7.0); HEMATOCRIT 20.8 % (42.0-52.0); HEMOGLOBIN 7.3 g/dl (14.0-18.0); LYMPHOCYTES # 1.2 10^3/ul (0.8-2.9); LYMPHOCYTES % 36.7 % (15.0-51.0); MEAN CORPUSCULAR HEMOGLOBIN 30.9 pg (29.0-33.0); MEAN CORPUSCULAR HGB CONC 35.1 g/dl (32.0-37.0); MEAN CORPUSCULAR VOLUME 88.1 fl (82.0-101.0); MEAN PLATELET VOLUME 10.4 fl (7.4-10.4); MONOCYTE # 0.4 10^3/ul (0.3-0.9); MONOCYTES % 10.8 % (0.0-11.0); NEUTROPHIL # 1.6 10^3/ul (1.6-7.5); NEUTROPHILS % 49.1 % (39.0-77.0); PLATELET COUNT 111 10^3/UL (140-415); RED BLOOD COUNT 2.36 10^6/ul (4.70-6.10); RED CELL DISTRIBUTION WIDTH 13.7 % (11.5-14.5)
[2017-08-16 05:19] LABS: WHITE BLOOD COUNT 3.2 10^3/ul (4.8-10.8)
[2017-08-16 05:44] LABS: IRON 16 ug/dl (35-150)
[2017-08-16 05:53] LABS: % IRON SATURATION 9 % SAT (22-52); TOTAL IRON BINDING CAPACITY 179 ug/dl (241-421)
[2017-08-16 06:01] LABS: ANION GAP 12 (8-16); BLOOD UREA NITROGEN 26 mg/dl (7-20); CALCIUM 8.9 mg/dl (8.4-10.2); CARBON DIOXIDE 32 mmol/L (21-31); CHLORIDE 94 mmol/L (97-110); CREATININE 8.79 mg/dl (0.61-1.24); GLUCOSE 107 mg/dl (70-220); POTASSIUM 4.6 mmol/L (3.5-5.1); SODIUM 133 mmol/L (135-144)
[2017-08-16 06:11] LABS: PHOSPHORUS 5.6 mg/dl (2.5-4.9)
[2017-08-16] MEDS: PANTOPRAZOLE (EC) 40 MG TAB PO (06:15)
[2017-08-16] MEDS: IOHEXOL 14.3 MG(I)/ML (ADULT) BTL PO (07:30)
[2017-08-16 08:17] LABS: ADD MAN DIFF? NO
[2017-08-16 08:18] LABS: BASOPHILS % 0.6 % (0.0-2.0); EOSINOPHILS # 0.1 10^3/ul (0.0-0.5); EOSINOPHILS % 2.2 % (0.0-7.0); HEMATOCRIT 22.2 % (42.0-52.0); HEMOGLOBIN 7.5 g/dl (14.0-18.0); LYMPHOCYTES # 1.3 10^3/ul (0.8-2.9); LYMPHOCYTES % 41.4 % (15.0-51.0); MEAN CORPUSCULAR HEMOGLOBIN 29.8 pg (29.0-33.0); MEAN CORPUSCULAR HGB CONC 33.8 g/dl (32.0-37.0); MEAN CORPUSCULAR VOLUME 88.1 fl (82.0-101.0); MEAN PLATELET VOLUME 9.5 fl (7.4-10.4); MONOCYTE # 0.3 10^3/ul (0.3-0.9); MONOCYTES % 10.2 % (0.0-11.0); NEUTROPHIL # 1.4 10^3/ul (1.6-7.5); NEUTROPHILS % 45.3 % (39.0-77.0); PLATELET COUNT 102 10^3/UL (140-415); RED BLOOD COUNT 2.52 10^6/ul (4.70-6.10); RED CELL DISTRIBUTION WIDTH 13.6 % (11.5-14.5)
[2017-08-16 08:18] LABS: WHITE BLOOD COUNT 3.1 10^3/ul (4.8-10.8)
[2017-08-16] MEDS: LISINOPRIL 20 MG TAB PO (08:40)
[2017-08-16] MEDS: LABETALOL 100 MG TAB PO ×2 (08:40→21:40)
[2017-08-16] MEDS: SENNA TAB PO ×2 (08:40→21:39)
[2017-08-16] MEDS: SEVELAMER CARBONATE 0.8 GM PKT PO ×3 (08:40→21:41)
[2017-08-16] MEDS: PRAZOSIN 1 MG CAP PO ×3 (08:41→21:40)
[2017-08-16] MEDS: NIFEdipine (XL) 60 MG TAB PO (08:41)
[2017-08-16] MEDS: MINOXIDIL 10 MG TAB PO ×2 (08:41→21:40)
[2017-08-16] MEDS ORDERED: SOD FERRIC GLUC COMPLX 125 MG in SOD CHLORIDE 0.9% 100 ML IVPB (11:00)
[2017-08-16] MEDS: IOHEXOL 0 ML (12:21)
[2017-08-16] MEDS: IODIXANOL LOCM 100 ML BTL (12:21)
[2017-08-16] MEDS: SOD CHLORIDE 0.9% 100 ML (12:21)
[2017-08-16] MEDS: IODIXANOL LOCM 50 ML BTL (12:21)
[2017-08-16] MEDS: HYDROCODONE/APAP (10/325) TAB PO ×6 (12:50→22:29)
[2017-08-16] MEDS: SOD FERRIC GLUC COMPLX 125 MG in SOD CHLORIDE 0.9% 100 ML IVPB (19:11)
[2017-08-16] MEDS: NIFEdipine (XL) 30 MG TAB PO (21:39)
[2017-08-17] MEDS: PANTOPRAZOLE (EC) 40 MG TAB PO (06:16)
[2017-08-17 07:03] LABS: ADD MAN DIFF? NO
[2017-08-17 07:16] LABS: WHITE BLOOD COUNT 3.6 10^3/ul (4.8-10.8)
[2017-08-17 07:16] LABS: BASOPHILS % 0.3 % (0.0-2.0); EOSINOPHILS # 0.1 10^3/ul (0.0-0.5); EOSINOPHILS % 1.9 % (0.0-7.0); HEMATOCRIT 21.6 % (42.0-52.0); HEMOGLOBIN 7.4 g/dl (14.0-18.0); LYMPHOCYTES # 1.4 10^3/ul (0.8-2.9); LYMPHOCYTES % 37.1 % (15.0-51.0); MEAN CORPUSCULAR HEMOGLOBIN 29.8 pg (29.0-33.0); MEAN CORPUSCULAR HGB CONC 34.3 g/dl (32.0-37.0); MEAN CORPUSCULAR VOLUME 87.1 fl (82.0-101.0); MEAN PLATELET VOLUME 10.5 fl (7.4-10.4); MONOCYTE # 0.3 10^3/ul (0.3-0.9); MONOCYTES % 6.9 % (0.0-11.0); NEUTROPHILS % 53.5 % (39.0-77.0); PLATELET COUNT 120 10^3/UL (140-415); RED BLOOD COUNT 2.48 10^6/ul (4.70-6.10); RED CELL DISTRIBUTION WIDTH 13.4 % (11.5-14.5)
[2017-08-17 07:43] LABS: ANION GAP 16 (8-16); BLOOD UREA NITROGEN 37 mg/dl (7-20); CARBON DIOXIDE 28 mmol/L (21-31); CHLORIDE 92 mmol/L (97-110); CREATININE 11.28 mg/dl (0.61-1.24); GLUCOSE 88 mg/dl (70-220); POTASSIUM 5.3 mmol/L (3.5-5.1); SODIUM 131 mmol/L (135-144)
[2017-08-17] MEDS: SEVELAMER CARBONATE 0.8 GM PKT PO (08:00)
[2017-08-17] MEDS: SENNA TAB PO ×2 (09:32→20:54)
[2017-08-17 10:35] LABS: OCCULT BLOOD STOOL NEGATIVE (NEGATIVE)
[2017-08-17] MEDS: SEVELAMER CARBONATE 800 MG TABLET PO ×2 (12:00→17:50)
[2017-08-17] MEDS: LIDOCAINE 1% (MDV) 10 ML INJ INJ (12:18)
[2017-08-17 13:25] LABS: IMMEDIATE SPIN CROSSMATCH 1 2
[2017-08-17] MEDS: LISINOPRIL 20 MG TAB PO (15:46)
[2017-08-17] MEDS: LABETALOL 100 MG TAB PO ×2 (15:47→20:52)
[2017-08-17] MEDS: NIFEdipine (XL) 60 MG TAB PO (15:48)
[2017-08-17] MEDS: PRAZOSIN 1 MG CAP PO ×2 (15:49→20:53)
[2017-08-17] MEDS: MINOXIDIL 10 MG TAB PO ×2 (15:50→20:52)
[2017-08-17] MEDS: SOD FERRIC GLUC COMPLX 125 MG in SOD CHLORIDE 0.9% 100 ML IVPB (17:51)
[2017-08-17] MEDS: EPOETIN 10000 UNITS/1 ML INJ (ESRD) SC (17:52)
[2017-08-17 18:33] LABS: ADD UMIC YES; UR ASCORBIC ACID NEGATIVE (NEGATIVE); UR BACTERIA FEW /HPF (NONE SEEN); UR BILIRUBIN (Dip) NEGATIVE (NEGATIVE); UR BLOOD (Dip) 1+ mg/dL (NEGATIVE); UR CLARITY CLEAR (CLEAR); UR COLOR STRAW (YELLOW); UR GLUCOSE (Dip) 2+ mg/dL (NEGATIVE); UR KETONES (Dip) NEGATIVE (NEGATIVE); UR LEUKOCYTE ESTERASE (Dip) NEGATIVE Leu/ul (NEGATIVE); UR NITRITE (Dip) NEGATIVE (NEGATIVE); UR RBC 31 /HPF (0-5); UR SPECIFIC GRAVITY (Dip) 1.009 (1.003-1.030); UR TOTAL PROTEIN (Dip) 3+ mg/dl (NEGATIVE); UR UROBILINOGEN (Dip) NEGATIVE (NEGATIVE); UR WBC 2 /HPF (0-5)
[2017-08-17] MEDS: CEFTRIAXONE 1 GM/50 ML (PMX) 50 ML IVPB (20:51)
[2017-08-17] MEDS: NIFEdipine (XL) 30 MG TAB PO (20:58)
[2017-08-18] MEDS: hydrALAzine 20 MG INJ IV (00:32)
[2017-08-18] MEDS: HYDROCODONE/APAP (10/325) TAB PO ×2 (00:40→18:56)
[2017-08-18 07:13] LABS: ADD MAN DIFF? NO
[2017-08-18 07:19] LABS: BASOPHILS % 0.2 % (0.0-2.0); EOSINOPHILS # 0.1 10^3/ul (0.0-0.5); EOSINOPHILS % 1.1 % (0.0-7.0); HEMATOCRIT 28.5 % (42.0-52.0); HEMOGLOBIN 9.9 g/dl (14.0-18.0); LYMPHOCYTES # 1.2 10^3/ul (0.8-2.9); LYMPHOCYTES % 26.3 % (15.0-51.0); MEAN CORPUSCULAR HEMOGLOBIN 30.1 pg (29.0-33.0); MEAN CORPUSCULAR HGB CONC 34.7 g/dl (32.0-37.0); MEAN CORPUSCULAR VOLUME 86.6 fl (82.0-101.0); MEAN PLATELET VOLUME 9.9 fl (7.4-10.4); MONOCYTE # 0.4 10^3/ul (0.3-0.9); MONOCYTES % 7.4 % (0.0-11.0); NEUTROPHILS % 64.6 % (39.0-77.0); PLATELET COUNT 138 10^3/UL (140-415); RED BLOOD COUNT 3.29 10^6/ul (4.70-6.10); RED CELL DISTRIBUTION WIDTH 13.3 % (11.5-14.5)
[2017-08-18 07:19] LABS: WHITE BLOOD COUNT 4.7 10^3/ul (4.8-10.8)
[2017-08-18 07:45] LABS: ANION GAP 11 (8-16); BLOOD UREA NITROGEN 28 mg/dl (7-20); CARBON DIOXIDE 29 mmol/L (21-31); CHLORIDE 98 mmol/L (97-110); CREATININE 8.94 mg/dl (0.61-1.24); GLUCOSE 90 mg/dl (70-220); POTASSIUM 5.1 mmol/L (3.5-5.1); SODIUM 133 mmol/L (135-144)
[2017-08-18] MEDS: SENNA TAB PO ×2 (08:26→20:56)
[2017-08-18] MEDS: LABETALOL 100 MG TAB PO ×2 (08:26→20:56)
[2017-08-18] MEDS: SEVELAMER CARBONATE 800 MG TABLET PO ×4 (08:26→14:24)
[2017-08-18] MEDS: PANTOPRAZOLE (EC) 40 MG TAB PO (08:26)
[2017-08-18] MEDS: PRAZOSIN 1 MG CAP PO ×2 (08:27→20:55)
[2017-08-18] MEDS: ACETAMINOPHEN 325 MG TAB PO (08:27)
[2017-08-18] MEDS: MINOXIDIL 10 MG TAB PO ×2 (08:28→20:55)
[2017-08-18] MEDS: NIFEdipine (XL) 60 MG TAB PO (08:28)
[2017-08-18] MEDS: LISINOPRIL 20 MG TAB PO (08:28)
[2017-08-18] MEDS ORDERED: VANCOMYCIN 1 GM (PMX) 250 ML IVPB (09:00)
[2017-08-18] MEDS: VANCOMYCIN 1.5 GM in SOD CHLORIDE 0.9% 250 ML IVPB (11:07)
[2017-08-18] MEDS: CEFTRIAXONE 1 GM/50 ML (PMX) 50 ML IVPB (14:58)
[2017-08-18] MEDS: SOD FERRIC GLUC COMPLX 125 MG in SOD CHLORIDE 0.9% 100 ML IVPB (17:31)
[2017-08-18] MEDS: NIFEdipine (XL) 30 MG TAB PO (20:55)
[2017-08-19] MEDS: PANTOPRAZOLE (EC) 40 MG TAB PO (06:03)
[2017-08-19 06:07] LABS: ADD MAN DIFF? NO
[2017-08-19 06:17] LABS: WHITE BLOOD COUNT 3.6 10^3/ul (4.8-10.8)
[2017-08-19 06:17] LABS: BASOPHILS % 0.8 % (0.0-2.0); EOSINOPHILS # 0.1 10^3/ul (0.0-0.5); EOSINOPHILS % 1.7 % (0.0-7.0); HEMATOCRIT 27.2 % (42.0-52.0); HEMOGLOBIN 9.3 g/dl (14.0-18.0); LYMPHOCYTES % 27.8 % (15.0-51.0); MEAN CORPUSCULAR HGB CONC 34.2 g/dl (32.0-37.0); MEAN CORPUSCULAR VOLUME 87.7 fl (82.0-101.0); MEAN PLATELET VOLUME 10.4 fl (7.4-10.4); MONOCYTE # 0.3 10^3/ul (0.3-0.9); MONOCYTES % 8.1 % (0.0-11.0); NEUTROPHIL # 2.2 10^3/ul (1.6-7.5); NEUTROPHILS % 61.3 % (39.0-77.0); PLATELET COUNT 123 10^3/UL (140-415); RED CELL DISTRIBUTION WIDTH 13.6 % (11.5-14.5)
[2017-08-19 07:28] LABS: ANION GAP 17 (8-16); BLOOD UREA NITROGEN 35 mg/dl (7-20); CALCIUM 9.1 mg/dl (8.4-10.2); CARBON DIOXIDE 26 mmol/L (21-31); CHLORIDE 98 mmol/L (97-110); CREATININE 11.12 mg/dl (0.61-1.24); GLUCOSE 87 mg/dl (70-220); POTASSIUM 5.4 mmol/L (3.5-5.1); SODIUM 136 mmol/L (135-144)
[2017-08-19] MEDS: LABETALOL 100 MG TAB PO ×2 (09:00→20:10)
[2017-08-19] MEDS: LISINOPRIL 20 MG TAB PO ×2 (09:00→15:00)
[2017-08-19] MEDS: NIFEdipine (XL) 60 MG TAB PO ×2 (09:00→15:00)
[2017-08-19] MEDS: MINOXIDIL 10 MG TAB PO ×2 (09:00→20:09)
[2017-08-19] MEDS: PRAZOSIN 1 MG CAP PO ×2 (09:00→20:09)
[2017-08-19] MEDS: SENNA TAB PO ×2 (09:30→20:10)
[2017-08-19] MEDS: LIDOCAINE 1% (MDV) 10 ML INJ INFIL (11:08)
[2017-08-19] MEDS: SEVELAMER CARBONATE 800 MG TABLET PO ×2 (12:30→17:20)
[2017-08-19] MEDS: CEFTRIAXONE 1 GM/50 ML (PMX) 50 ML IVPB (15:02)
[2017-08-19] MEDS: HYDROCODONE/APAP (10/325) TAB PO (15:17)
[2017-08-19] MEDS: EPOETIN 10000 UNITS/1 ML INJ (ESRD) SC (17:21)
[2017-08-19] MEDS: SOD FERRIC GLUC COMPLX 125 MG in SOD CHLORIDE 0.9% 100 ML IVPB (17:22)
[2017-08-19] MEDS: NIFEdipine (XL) 30 MG TAB PO (20:09)
[2017-08-19] MEDS: morphine LIQ (10 MG/5 ML) CUP PO (20:13)
[2017-08-19] MEDS: TRIMETHOBENZAMIDE 100 MG/ML VIAL IM (23:46)
[2017-08-19] MEDS: ONDANSETRON INJ 8 MG in SOD CHLORIDE 0.9% 50 ML IV (23:46)
[2017-08-20] MEDS: DOCUSATE SODIUM 100 MG CAP PO (00:20)
[2017-08-20] MEDS: traMADol 50 MG TAB PO (00:20)
[2017-08-20] MEDS: MAGNESIUM HYDROXIDE 30ML CUP PO (00:20)
[2017-08-20] MEDS: HYDROCODONE/APAP (10/325) TAB PO (01:45)
[2017-08-20] MEDS: hydrALAzine 20 MG INJ IV (01:46)
[2017-08-20] MEDS ORDERED: HYDROmorphONE 1 MG/ML SYG IV (02:00)
[2017-08-20] MEDS: HYDROmorphONE 1 MG/ML SYG IV (02:14)
[2017-08-20] MEDS: PANTOPRAZOLE (EC) 40 MG TAB PO (05:04)
[2017-08-20 07:37] LABS: ADD MAN DIFF? NO
[2017-08-20 07:41] LABS: BASOPHILS % 0.6 % (0.0-2.0); EOSINOPHILS % 0.5 % (0.0-7.0); HEMATOCRIT 30.2 % (42.0-52.0); HEMOGLOBIN 10.3 g/dl (14.0-18.0); LYMPHOCYTES % 15.5 % (15.0-51.0); MEAN CORPUSCULAR HEMOGLOBIN 29.9 pg (29.0-33.0); MEAN CORPUSCULAR HGB CONC 34.1 g/dl (32.0-37.0); MEAN CORPUSCULAR VOLUME 87.5 fl (82.0-101.0); MEAN PLATELET VOLUME 9.8 fl (7.4-10.4); MONOCYTE # 0.5 10^3/ul (0.3-0.9); MONOCYTES % 7.8 % (0.0-11.0); NEUTROPHIL # 4.7 10^3/ul (1.6-7.5); NEUTROPHILS % 74.6 % (39.0-77.0); PLATELET COUNT 143 10^3/UL (140-415); RED BLOOD COUNT 3.45 10^6/ul (4.70-6.10); RED CELL DISTRIBUTION WIDTH 13.5 % (11.5-14.5)
[2017-08-20 07:41] LABS: WHITE BLOOD COUNT 6.3 10^3/ul (4.8-10.8)
[2017-08-20 08:05] LABS: ANION GAP 15 (8-16); BLOOD UREA NITROGEN 25 mg/dl (7-20); CARBON DIOXIDE 29 mmol/L (21-31); CHLORIDE 98 mmol/L (97-110); CREATININE 8.19 mg/dl (0.61-1.24); GLUCOSE 95 mg/dl (70-220); POTASSIUM 4.9 mmol/L (3.5-5.1); SODIUM 137 mmol/L (135-144)
[2017-08-20] MEDS: LABETALOL 100 MG TAB PO (08:13)
[2017-08-20] MEDS: MINOXIDIL 10 MG TAB PO (08:13)
[2017-08-20] MEDS: SEVELAMER CARBONATE 800 MG TABLET PO ×3 (08:13→17:31)
[2017-08-20] MEDS: LISINOPRIL 20 MG TAB PO (08:14)
[2017-08-20] MEDS: SENNA TAB PO (08:14)
[2017-08-20] MEDS: NIFEdipine (XL) 60 MG TAB PO (08:15)
[2017-08-20] MEDS: PRAZOSIN 1 MG CAP PO (08:15)
[2017-08-20] MEDS: BACLOFEN 10 MG TAB PO (13:18)
[2017-08-20] MEDS: CEFTRIAXONE 1 GM/50 ML (PMX) 50 ML IVPB (14:57)
[2017-08-20] MEDS ORDERED: HYDROmorphONE 4 MG TAB PO (15:28)
[2017-08-20] MEDS: SOD FERRIC GLUC COMPLX 125 MG in SOD CHLORIDE 0.9% 100 ML IVPB (17:32)
== END 2017-08-20 18:51 | disposition home or self-care (01) | DRG 304 ==
LOC: ICU 19:45 → E/R 14:21 → ICU 08-15 23:54 → MS4 08-16 18:17 → ICU 19:51
PROC: 5A1D70Z Performance of Urinary Filtration, Intermittent, Less than 6 Hours Per Day (ICD-10-PCS; principal; 2017-08-14)
DX: I16.0 Hypertensive urgency (principal); N18.6 End stage renal disease; N39.0 Urinary tract infection, site not specified; N13.30 Unspecified hydronephrosis; I12.0 Hypertensive chronic kidney disease with stage 5 chronic kidney disease or end stage renal disease; R07.9 Chest pain, unspecified; K21.9 Gastro-esophageal reflux disease without esophagitis; R31.9 Hematuria, unspecified; D63.1 Anemia in chronic kidney disease; Q63.9 Congenital malformation of kidney, unspecified; M51.9 Unspecified thoracic, thoracolumbar and lumbosacral intervertebral disc disorder; N26.1 Atrophy of kidney (terminal); Z99.2 Dependence on renal dialysis
CPT/HCPCS: 36415; 36430; 71045; 72148; 74018; 75635; 80048; 80061; 80307; 81001; 82270; 82384; 82550; 82553; 82728; 83036; 83540; 83690; 83735; 84100; 84439; 84443; 84484; 85025; 85610; 85730; 86644; 86704; 86706; 86709; 86803; 86850; 86900; 86901; 86920; 87081; 87086; 87340; 90935; 93005; 96365; 96366; 96375; 99291-25

== ENCOUNTER 2017-10-19 16:12 | Emergency (ER) | payer BC, MEDICAID ==
[2017-10-19] MEDS: hydrALAzine 20 MG INJ IV (18:39)
[2017-10-19] MEDS: morphine 4 MG/ML VIAL IV (18:40)
[2017-10-19] MEDS: ONDANSETRON 4 MG INJ IV (18:40)
[2017-10-19 18:47] LABS: ADD MAN DIFF? NO
[2017-10-19 18:48] LABS: WHITE BLOOD COUNT 6.7 10^3/ul (4.8-10.8)
[2017-10-19 18:48] LABS: BASOPHILS % 0.3 % (0.0-2.0); EOSINOPHILS % 0.1 % (0.0-7.0); HEMATOCRIT 28.7 % (42.0-52.0); LYMPHOCYTES # 1.1 10^3/ul (0.8-2.9); LYMPHOCYTES % 16.4 % (15.0-51.0); MEAN CORPUSCULAR HEMOGLOBIN 29.1 pg (29.0-33.0); MEAN CORPUSCULAR HGB CONC 34.8 g/dl (32.0-37.0); MEAN CORPUSCULAR VOLUME 83.4 fl (82.0-101.0); MEAN PLATELET VOLUME 10.5 fl (7.4-10.4); MONOCYTE # 0.4 10^3/ul (0.3-0.9); MONOCYTES % 6.4 % (0.0-11.0); NEUTROPHIL # 5.1 10^3/ul (1.6-7.5); NEUTROPHILS % 76.5 % (39.0-77.0); PLATELET COUNT 133 10^3/UL (140-415); POSITIVE DIFF @See below; RED BLOOD COUNT 3.44 10^6/ul (4.70-6.10); RED CELL DISTRIBUTION WIDTH 14.4 % (11.5-14.5)
[2017-10-19 19:10] LABS: ALANINE AMINOTRANSFERASE 25 IU/L (13-69); ALBUMIN 4.1 g/dl (3.3-4.9); ALBUMIN/GLOBULIN RATIO 1.46; ALKALINE PHOSPHATASE 118 IU/L (42-121); ANION GAP 22 (8-16); ASPARTATE AMINO TRANSFERASE 24 IU/L (15-46); BILIRUBIN,INDIRECT 0.1 mg/dl (0-1.1); BILIRUBIN,TOTAL 0.1 mg/dl (0.2-1.3); BLOOD UREA NITROGEN 51 mg/dl (7-20); CARBON DIOXIDE 27 mmol/L (21-31); CHLORIDE 94 mmol/L (97-110); CREATININE 11.69 mg/dl (0.61-1.24); GLUCOSE 96 mg/dl (70-220); LIPASE 53 U/L (23-300); POTASSIUM 3.6 mmol/L (3.5-5.1); SODIUM 139 mmol/L (135-144); TOTAL PROTEIN 6.9 g/dl (6.1-8.1)
[2017-10-19 19:22] LABS: B-TYPE NATRIURETIC PEPTIDE 24600 PG/ML (0-125); TROPONIN-I < 0.012 ng/ml (0.000-0.120)
== END 2017-10-19 20:49 | disposition home or self-care (01) ==
LOC: E/R 20:49
DX: G89.4 Chronic pain syndrome (principal); I12.0 Hypertensive chronic kidney disease with stage 5 chronic kidney disease or end stage renal disease; N18.6 End stage renal disease; R11.2 Nausea with vomiting, unspecified; Z99.2 Dependence on renal dialysis
CPT/HCPCS: 36415; 74176; 80053; 83690; 83880; 84484; 85025; 93005; 96374; 96375; 99285-25

== ENCOUNTER 2017-10-23 20:31 | Inpatient (IN) | payer BC ==
[2017-10-23] MEDS ORDERED: HYDROCODONE/APAP (5/325) TAB PO (22:30)
[2017-10-23] MEDS ORDERED: ONDANSETRON 4 MG INJ IV (22:30)
[2017-10-23] MEDS: morphine 2 MG INJ IV (23:22)
[2017-10-24] MEDS: morphine 2 MG INJ IV ×2 (05:28→16:26)
[2017-10-24] MEDS: AL HYDROX/MG HYDROX/SIMETH 30 ML CUP PO (06:47)
[2017-10-24 07:48] LABS: ADD MAN DIFF? NO
[2017-10-24 07:52] LABS: WHITE BLOOD COUNT 4.9 10^3/ul (4.8-10.8)
[2017-10-24 07:52] LABS: BASOPHILS % 0.4 % (0.0-2.0); EOSINOPHILS # 0.1 10^3/ul (0.0-0.5); EOSINOPHILS % 1.2 % (0.0-7.0); HEMATOCRIT 24.1 % (42.0-52.0); HEMOGLOBIN 8.3 g/dl (14.0-18.0); LYMPHOCYTES # 1.2 10^3/ul (0.8-2.9); LYMPHOCYTES % 24.6 % (15.0-51.0); MEAN CORPUSCULAR HEMOGLOBIN 28.8 pg (29.0-33.0); MEAN CORPUSCULAR HGB CONC 34.4 g/dl (32.0-37.0); MEAN CORPUSCULAR VOLUME 83.7 fl (82.0-101.0); MEAN PLATELET VOLUME 10.8 fl (7.4-10.4); MONOCYTE # 0.3 10^3/ul (0.3-0.9); MONOCYTES % 6.5 % (0.0-11.0); NEUTROPHIL # 3.3 10^3/ul (1.6-7.5); NEUTROPHILS % 67.1 % (39.0-77.0); PLATELET COUNT 112 10^3/UL (140-415); RED BLOOD COUNT 2.88 10^6/ul (4.70-6.10); RED CELL DISTRIBUTION WIDTH 14.2 % (11.5-14.5)
[2017-10-24 08:27] LABS: ALANINE AMINOTRANSFERASE 35 IU/L (13-69); ALBUMIN 3.3 g/dl (3.3-4.9); ALBUMIN/GLOBULIN RATIO 1.26; ALKALINE PHOSPHATASE 108 IU/L (42-121); ANION GAP 18 (8-16); ASPARTATE AMINO TRANSFERASE 31 IU/L (15-46); BLOOD UREA NITROGEN 68 mg/dl (7-20); CARBON DIOXIDE 29 mmol/L (21-31); CHLORIDE 91 mmol/L (97-110); CREATININE 12.73 mg/dl (0.61-1.24); GLUCOSE 90 mg/dl (70-220); POTASSIUM 5.2 mmol/L (3.5-5.1); SODIUM 133 mmol/L (135-144); TOTAL PROTEIN 5.9 g/dl (6.1-8.1)
[2017-10-24] MEDS: SEVELAMER CARBONATE 800 MG TABLET PO ×3 (08:30→18:21)
[2017-10-24] MEDS: PIPER-TAZO 2.25 GM (PMX) 50 ML IVPB ×2 (08:30→20:59)
[2017-10-24] MEDS: MINOXIDIL 10 MG TAB PO ×2 (09:00→21:01)
[2017-10-24] MEDS: NIFEdipine (XL) 90 MG TAB PO ×2 (09:00→21:00)
[2017-10-24] MEDS: ISOSORBIDE MONONITRATE(SR)60 MG TAB PO ×2 (09:00→21:01)
[2017-10-24] MEDS: LABETALOL 200 MG TAB PO ×3 (09:00→21:01)
[2017-10-24] MEDS: DOXAZOSIN 2 MG TAB PO ×2 (09:00→21:00)
[2017-10-24] MEDS: LISINOPRIL 20 MG TAB PO (09:00)
[2017-10-24 15:44] LABS: HEPATITIS B SURFACE ANTIGEN NEGATIVE (NEGATIVE)
[2017-10-24] MEDS: LIDOCAINE 1% (MDV) 20 ML INJ INJ (15:58)
[2017-10-25 06:15] LABS: ADD MAN DIFF? NO
[2017-10-25 06:20] LABS: BASOPHILS % 0.6 % (0.0-2.0); EOSINOPHILS # 0.1 10^3/ul (0.0-0.5); EOSINOPHILS % 1.7 % (0.0-7.0); HEMATOCRIT 22.3 % (42.0-52.0); HEMOGLOBIN 7.6 g/dl (14.0-18.0); LYMPHOCYTES # 1.3 10^3/ul (0.8-2.9); LYMPHOCYTES % 38.2 % (15.0-51.0); MEAN CORPUSCULAR HGB CONC 34.1 g/dl (32.0-37.0); MEAN CORPUSCULAR VOLUME 85.1 fl (82.0-101.0); MEAN PLATELET VOLUME 11.5 fl (7.4-10.4); MONOCYTE # 0.3 10^3/ul (0.3-0.9); MONOCYTES % 9.5 % (0.0-11.0); NEUTROPHIL # 1.7 10^3/ul (1.6-7.5); PLATELET COUNT 112 10^3/UL (140-415); RED BLOOD COUNT 2.62 10^6/ul (4.70-6.10); RED CELL DISTRIBUTION WIDTH 14.5 % (11.5-14.5)
[2017-10-25 06:20] LABS: WHITE BLOOD COUNT 3.5 10^3/ul (4.8-10.8)
[2017-10-25] MEDS: PANTOPRAZOLE (EC) 40 MG TAB PO (06:21)
[2017-10-25 06:40] LABS: ANION GAP 12 (8-16); BLOOD UREA NITROGEN 44 mg/dl (7-20); CALCIUM 8.7 mg/dl (8.4-10.2); CARBON DIOXIDE 31 mmol/L (21-31); CHLORIDE 96 mmol/L (97-110); CREATININE 7.93 mg/dl (0.61-1.24); GLUCOSE 84 mg/dl (70-220); POTASSIUM 4.9 mmol/L (3.5-5.1); SODIUM 134 mmol/L (135-144)
[2017-10-25 06:43] LABS: MAGNESIUM 2.1 mg/dl (1.7-2.5)
[2017-10-25 06:43] LABS: PHOSPHORUS 4.8 mg/dl (2.5-4.9)
[2017-10-25] MEDS: PIPER-TAZO 2.25 GM (PMX) 50 ML IVPB ×2 (08:31→20:48)
[2017-10-25] MEDS: LABETALOL 200 MG TAB PO ×3 (08:33→20:49)
[2017-10-25] MEDS: SEVELAMER CARBONATE 800 MG TABLET PO ×3 (08:33→18:36)
[2017-10-25] MEDS: NIFEdipine (XL) 90 MG TAB PO (08:33)
[2017-10-25] MEDS: MINOXIDIL 10 MG TAB PO ×2 (08:33→20:51)
[2017-10-25] MEDS: LISINOPRIL 20 MG TAB PO (08:33)
[2017-10-25] MEDS: DOXAZOSIN 2 MG TAB PO ×2 (08:33→23:13)
[2017-10-25] MEDS: ISOSORBIDE MONONITRATE(SR)60 MG TAB PO (08:33)
[2017-10-25] MEDS: ISOSORBIDE MONONITRATE(SR)30 MG TAB PO (21:00)
[2017-10-25] MEDS: NIFEdipine (XL) 60 MG TAB PO (21:00)
[2017-10-25] MEDS: morphine 2 MG INJ IV ×2 (23:21→23:50)
[2017-10-26] MEDS: PANTOPRAZOLE (EC) 40 MG TAB PO (05:23)
[2017-10-26] MEDS: NIFEdipine (XL) 60 MG TAB PO (09:00)
[2017-10-26] MEDS: LISINOPRIL 20 MG TAB PO (09:00)
[2017-10-26] MEDS: LABETALOL 200 MG TAB PO ×2 (09:00→13:00)
[2017-10-26] MEDS: DOXAZOSIN 2 MG TAB PO (09:00)
[2017-10-26] MEDS: MINOXIDIL 10 MG TAB PO (09:00)
[2017-10-26] MEDS: SEVELAMER CARBONATE 800 MG TABLET PO ×3 (09:02→17:43)
[2017-10-26] MEDS: PIPER-TAZO 2.25 GM (PMX) 50 ML IVPB (09:02)
[2017-10-26] MEDS: ISOSORBIDE MONONITRATE(SR)30 MG TAB PO (09:03)
[2017-10-26] MEDS ORDERED: LIDOCAINE 1% (MDV) 20 ML INJ SC (11:30)
[2017-10-26] MEDS: LIDOCAINE 1% (MPF) 30 ML INJ SC (11:59)
[2017-10-26] MEDS: EPOETIN 4000 UNITS/1 ML INJ (ESRD) SC (17:44)
== END 2017-10-26 19:00 | disposition home or self-care (01) | DRG 690 ==
LOC: 2NE 20:31
PROVIDERS: Internal Medicine Nephrology
PROC: 5A1D70Z Performance of Urinary Filtration, Intermittent, Less than 6 Hours Per Day (ICD-10-PCS; principal; 2017-10-24)
DX: N13.6 Pyonephrosis (principal); I13.2 Hypertensive heart and chronic kidney disease with heart failure and with stage 5 chronic kidney disease, or end stage renal disease; I50.32 Chronic diastolic (congestive) heart failure; Q60.4 Renal hypoplasia, bilateral; N15.1 Renal and perinephric abscess; E11.22 Type 2 diabetes mellitus with diabetic chronic kidney disease; N18.6 End stage renal disease; I16.0 Hypertensive urgency; D63.1 Anemia in chronic kidney disease; D69.6 Thrombocytopenia, unspecified; G47.00 Insomnia, unspecified; G25.81 Restless legs syndrome; Z99.2 Dependence on renal dialysis
CPT/HCPCS: 80048; 80053; 83735; 84100; 85025; 87086; 87340; 90935